=== PATIENT | female | born 1940 | race Caucasian/White ===

== ENCOUNTER → 2017-07-05 | Day surgery (SDC) | payer MEDICARE ==
--- NOTE | 2017-07-01 18:48 | Diagnostic Imaging Report ---
PROCEDURE: X-RAY CHEST, TWO VIEWS COMPARISON: Chest x-ray 12/04/14 INDICATIONS: PRE - OP RIGHT CARPAL TUNNEL FINDINGS: LUNGS: No consolidations or edema. A calcified granuloma in the posterior right lower lobe is stable. PLEURA: No effusions or pneumothorax. Bilateral apical pleural parenchymal thickening is stable. HEART \T\ MEDIASTINUM: The heart is normal in size. The aorta is mildly ectatic. Calcified mediastinal lymph nodes are stable measuring up to 3 cm. BONES \T\ SOFT TISSUES: Mild degenerative changes of the spine consistent with age. There are mild degenerative changes of the shoulders. Calcification superior to the left humeral head is suggestive of calcific tendinitis. No lytic or blastic lesions. CONCLUSION: Stable chest. No active disease. Dictated by: Mimi Stuart M.D. on 07/01/2017 at 18:56 Electronically approved by: Mimi Stuart M.D. on 07/01/2017 at 18:56
[~2017-07-05] MED LIST: ASPIR 8181 MG PO; BUPIVACAINE HCL 0.5% INJ 30 ML VIAL INJ ONE; CALCIUM 600 +1 EAC1 PO; CEFAZOLIN SOD 1 GM/NS 50ML 50 ML IV ONE; CELEBREX100 MG PO; CENTRUM SILVER1 EACH PO; DEXAMETHASONE SOD PHOS INJ 4 MG/ML VIAL ONE; EPHEDRINE SULFATE INJ 50 MG/10 ML SYR ONE; FENTANYL CITRATE/PF 100MCG/2 ML INJ ONE; FISH OIL PO; LIDOCAINE HCL 2% LOCAL INJ 5 ML SDV VIAL INJ ONE; LOSARTAN POTASS50 MG PO; MAGNESIUM OXID400 MG PO; MUPIROCIN 2% OINT 22 GM TUBE ONE; ONDANSETRON HCL INJ 2 MG/ML VIAL ONE; PREMARIN0.625 MG PO; PROPOFOL IV EMULSION 10 MG/ML 20 ML VIAL ONE; SEVOFLURANE INHAL SOLN 250 ML PEN BTL ONE; VITAMIN B COMPLEX PO
[2017-07-05 06:12] LABS: BASOPHILS % 0.5 % (0.0-1.0); EOSINOPHILS # (AUTO) 0.3 (0.0-0.4); EOSINOPHILS % 4.4 % (0.0-6.0); HEMATOCRIT 40.5 % (34.2-44.1); HEMOGLOBIN 13.7 g/dL (12.0-16.0); LYMPHOCYTES # (AUTO) 1.3 (1.0-3.2); LYMPHOCYTES % 22.4 % (18.0-39.1); MEAN CORPUSCULAR HEMOGLOBIN 31.6 pg (28-32); MEAN CORPUSCULAR HGB CONC 33.8 g/dL (31-35); MEAN CORPUSCULAR VOLUME 93.5 fL (81-99); MONOCYTES # (AUTO) 0.6 (0.2-0.8); MONOCYTES % 9.9 % (4.4-11.3); NEUTROPHILS # (AUTO) 3.5 (2.1-6.9); NEUTROPHILS % 62.4 % (38.7-80.0); PLATELET COUNT 112 x10e3/uL (140-360); RED BLOOD COUNT 4.33 x10e6/uL (3.6-5.1); RED CELL DISTRIBUTION WIDTH 12.2 % (11.7-14.4)
--- NOTE | 2017-07-05 16:49 | Operative Report ---
DATE OF PROCEDURE: July 05, 2017 PREOPERATIVE DIAGNOSIS: Right carpal tunnel syndrome. POSTOPERATIVE DIAGNOSES 1. Right carpal tunnel syndrome. 2. Flexor tenosynovitis, right wrist. PROCEDURES 1. Right open carpal tunnel release. 2. Flexor tenosynovectomy, right wrist. ANESTHESIA: General. HISTORY: The patient is a 76-year-old with EMG-proven right carpal tunnel syndrome. Risks, benefits and alternatives of treatment were discussed with the patient. The patient is prepared to undergo the procedure as outlined. PROCEDURE: The patient was brought to the operating theater. After the induction of adequate general inhalation anesthesia, the patient was prepped and draped in the supine position. A time out was performed by the entire operating room team. A 2.5-cm incision was marked out in the intrathenar space. The right upper extremity was exsanguinated and a tourniquet was inflated to a pressure of 250 mmHg. The incision was made through the skin and subcutaneous tissues and all venous tributaries were controlled with bipolar cautery. The incision was deepened through the palmar fascia until the transverse carpal ligament was identified. The ligament was sharply sectioned, taking care to protect and preserve the median nerve underlying it. After the complete width of the ligament had been transected, the distal volar forearm fascia was divided under direct view. Proliferative flexor tenosynovium was noticed to encompass the median nerve and this was radically excised. After performing this maneuver, the nerve was noted to lie adequately decompressed. The wound was copiously irrigated with bacteriostatic saline, closed with 5-0 nylon in an interrupted horizontal mattress fashion. A Marcaine field block was performed at the operative site. Tourniquet was deflated. All of the fingers pinked up nicely and a sterile bulking conforming bandage was applied to the hand and the wrist. A fiberglass splint was fashioned to maintain the wrist in a modest amount of extension. This was held in place with a loosely wrapped Peter wrap. The patient tolerated the procedure well and was brought to the recovery room in satisfactory condition and discharged with a postoperative instruction sheet as well as a followup appointment. Job#: [id number] [facility]
== END | disposition home or self-care (01) ==
LOC: OR 05:12
PROVIDERS: ATTEND Plastic Surgery
DX: G56.01 Carpal tunnel syndrome, right upper limb (principal); M65.841 Other synovitis and tenosynovitis, right hand; H91.90 Unspecified hearing loss, unspecified ear; I10 Essential (primary) hypertension; K75.9 Inflammatory liver disease, unspecified; Z01.810 Encounter for preprocedural cardiovascular examination; Z01.818 Encounter for other preprocedural examination; Z96.659 Presence of unspecified artificial knee joint
CPT/HCPCS: 25115; 36415; 71020; 85025; 93005; J1100; J2001; J2405

== ENCOUNTER 2018-09-22 14:00 | Outpatient (RCR) | payer MEDICARE ==
[~2018-09-22 14:00] MED LIST changes: -BUPIVACAINE HCL 0.5% INJ 30 ML VIAL INJ ONE; -CEFAZOLIN SOD 1 GM/NS 50ML 50 ML IV ONE; -DEXAMETHASONE SOD PHOS INJ 4 MG/ML VIAL ONE; -EPHEDRINE SULFATE INJ 50 MG/10 ML SYR ONE; -FENTANYL CITRATE/PF 100MCG/2 ML INJ ONE; -LIDOCAINE HCL 2% LOCAL INJ 5 ML SDV VIAL INJ ONE; -MUPIROCIN 2% OINT 22 GM TUBE ONE; -ONDANSETRON HCL INJ 2 MG/ML VIAL ONE; -PROPOFOL IV EMULSION 10 MG/ML 20 ML VIAL ONE; -SEVOFLURANE INHAL SOLN 250 ML PEN BTL ONE
== END 2018-09-24 ==
LOC: PT 14:00
PROVIDERS: ATTEND Specialist
DX: M47.816 Spondylosis without myelopathy or radiculopathy, lumbar region (principal); M62.81 Muscle weakness (generalized); R26.9 Unspecified abnormalities of gait and mobility

== ENCOUNTER 2018-10-09 15:00 | Outpatient (RCR) | payer MEDICARE | END 2018-10-24 | LOC: PT 15:00 | PROVIDERS: ATTEND Specialist | DX: M47.816 Spondylosis without myelopathy or radiculopathy, lumbar region (principal); M62.81 Muscle weakness (generalized); R26.9 Unspecified abnormalities of gait and mobility | CPT/HCPCS: 97139 ==

== ENCOUNTER → 2020-12-24 | Outpatient (RCR) | payer MEDICARE | LOC: PT 12-12 10:48 | PROVIDERS: ATTEND Specialist | DX: M19.011 Primary osteoarthritis, right shoulder (principal) ==

== ENCOUNTER 2021-01-23 14:56 | Outpatient (RCR) | payer MEDICARE | END 2021-01-24 | LOC: PT 14:56 | PROVIDERS: ATTEND Specialist | DX: M19.011 Primary osteoarthritis, right shoulder (principal) | CPT/HCPCS: 97139 ==

== ENCOUNTER 2021-02-23 15:00 | Outpatient (RCR) | payer MEDICARE | END 2021-02-24 | LOC: PT 15:00 | PROVIDERS: ATTEND Specialist | DX: M19.011 Primary osteoarthritis, right shoulder (principal); M25.511 Pain in right shoulder; M25.611 Stiffness of right shoulder, not elsewhere classified; M62.81 Muscle weakness (generalized) ==

== ENCOUNTER 2021-03-16 14:59 | Outpatient (RCR) | payer MEDICARE | END 2021-03-26 | LOC: PT 14:59 | PROVIDERS: ATTEND Specialist | DX: M19.011 Primary osteoarthritis, right shoulder (principal) | CPT/HCPCS: 97139 ==

== ENCOUNTER → 2022-03-18 | Outpatient (CLI) | payer MEDICARE | LOC: RAD 08:36 | PROVIDERS: ATTEND Student in an Organized Health Care Education/Training Program | DX: I10 Essential (primary) hypertension (principal) | CPT/HCPCS: 93306 ==

== ENCOUNTER 2022-10-31 06:46 | Emergency (ER) | payer MEDICARE ==
[~2022-10-31] VITALS: Ht 160 cm; Wt 83.9 kg
[2022-10-31] MEDS ORDERED: DILTIAZEM HCL 5 MG/ML 5 ML VIAL IV ONE ×2 (07:00→08:30)
[2022-10-31] MEDS ORDERED: ENOXAPARIN INJ 80 MG/0.8 ML SYR SC STA (07:03)
[2022-10-31 07:15] LABS: BASOPHILS % 0.1 % (0.0-1.0); EOSINOPHILS % 0.2 % (0.0-6.0); HEMATOCRIT 38.5 % (34.2-44.1); HEMOGLOBIN 12.5 g/dL (12.0-16.0); LYMPHOCYTES # (AUTO) 0.7 (1.0-3.2); LYMPHOCYTES % 6.1 % (18.0-39.1); MEAN CORPUSCULAR HEMOGLOBIN 32.2 pg (28-32); MEAN CORPUSCULAR HGB CONC 32.5 g/dL (31-35); MEAN CORPUSCULAR VOLUME 99.2 fL (81-99); MONOCYTES # (AUTO) 0.5 (0.2-0.8); MONOCYTES % 4.5 % (4.4-11.3); NEUTROPHILS % 88.1 % (38.7-80.0); PLATELET COUNT 197 x10e3/uL (140-360); RED BLOOD COUNT 3.88 x10e6/uL (3.6-5.1); RED CELL DISTRIBUTION WIDTH 13.2 % (11.7-14.4)
[2022-10-31] MEDS ORDERED: SODIUM CHLORIDE FLUSH 10 ML SYR IV PRN (07:15)
[2022-10-31] MEDS ORDERED: ASPIRIN 81 MG CHEW TAB PO ONE (07:15)
[2022-10-31 07:27] LABS: ALBUMIN 3.5 g/dL (3.5-5.0); ALBUMIN/GLOBULIN RATIO 1.3 (0.8-2.0); ANION GAP 19.7 mmol/L (8-16); CREATININE, SERUM 0.86 mg/dL (0.57-1.11)
[2022-10-31] MEDS ORDERED: DILTIAZEM HCL 30 MG TAB PO SCH (07:30)
[2022-10-31 07:31] LABS: POTASSIUM 2.7 mmol/L (3.5-5.1)
[2022-10-31] MEDS ORDERED: IOPAMIDOL 370 MG/ML 100 ML INFUS..BTL INJ ONE (07:35)
[2022-10-31] MEDS ORDERED: POTASSIUM CHLORIDE 20MEQ/100ML 100 ML IV SCH (08:00)
[2022-10-31] MEDS ORDERED: DILTIAZEM HCL 125 ML IV SCH (08:30)
[2022-10-31] MEDS ORDERED: DILTIAZEM HCL IV 5MG/ML 25 ML VIAL ONE (08:50)
[2022-10-31] MEDS ORDERED: ONDANSETRON HCL INJ 2MG/ML 2ML 2 MG/ML VIAL IV STA (08:50)
[2022-10-31] MEDS ORDERED: SODIUM CHLORIDE 0.9% 100 ML ONE (08:50)
[2022-10-31] MEDS ORDERED: Morphine 2mg Syringe 2 MG/ML SYR IV ONE (09:00)
[2022-10-31] MEDS ORDERED: SODIUM CHLORIDE 0.9% 250ML 250 ML ONE (09:26)
== END 2022-10-31 10:54 | disposition short-term general hospital (02) ==
LOC: ER 06:50
DX: I48.20 Chronic atrial fibrillation, unspecified (principal); E24.9 Cushing's syndrome, unspecified; D35.02 Benign neoplasm of left adrenal gland; I10 Essential (primary) hypertension; Z85.89 Personal history of malignant neoplasm of other organs and systems
CPT/HCPCS: 36415; 71045; 71260; 80053; 83880; 84484; 85025; 93005; 94760; 99284; J1650; J3480; J7050 ×2; Q9967; U0002

== ENCOUNTER 2022-11-11 08:11 | Emergency (ER) | payer MEDICARE ==
[~2022-11-11] VITALS: Ht 160 cm; Wt 83.9 kg
[2022-11-11] MEDS ORDERED: DILTIAZEM HCL 5 MG/ML 5 ML VIAL IV ONE ×2 (08:30→09:15)
[2022-11-11] MEDS ORDERED: DILTIAZEM HCL IV SOLN 125 MG in SODIUM CHLORIDE 0.9% 100 ML IV SCH (08:30)
[2022-11-11] MEDS ORDERED: SODIUM CHLORIDE FLUSH 10 ML SYR IV PRN (08:30)
[2022-11-11 08:34] LABS: BASOPHILS % 0.1 % (0.0-1.0); EOSINOPHILS % 0.1 % (0.0-6.0); HEMATOCRIT 34.4 % (34.2-44.1); HEMOGLOBIN 11.7 g/dL (12.0-16.0); LYMPHOCYTES # (AUTO) 0.4 (1.0-3.2); LYMPHOCYTES % 4.5 % (18.0-39.1); MEAN CORPUSCULAR HEMOGLOBIN 32.3 pg (28-32); MONOCYTES # (AUTO) 0.4 (0.2-0.8); MONOCYTES % 3.8 % (4.4-11.3); NEUTROPHILS # (AUTO) 8.2 (2.1-6.9); NEUTROPHILS % 89.9 % (38.7-80.0); PLATELET COUNT 163 x10e3/uL (140-360); RED BLOOD COUNT 3.62 x10e6/uL (3.6-5.1); RED CELL DISTRIBUTION WIDTH 12.8 % (11.7-14.4)
[2022-11-11 08:54] LABS: ALBUMIN 3.3 g/dL (3.5-5.0); ALBUMIN/GLOBULIN RATIO 1.4 (0.8-2.0); ANION GAP 20.1 mmol/L (8-16); CALCIUM 8.6 mg/dL (8.4-10.2); CREATININE, SERUM 0.86 mg/dL (0.57-1.11)
[2022-11-11 08:56] LABS: POTASSIUM 2.1 mmol/L (3.5-5.1)
[2022-11-11] MEDS ORDERED: POTASSIUM CHLORIDE 20MEQ/100ML 300 ML IV ONE (09:00)
[2022-11-11] MEDS ORDERED: SODIUM CHLORIDE 0.9% 500ML 500 ML ONE (09:11)
[2022-11-11] MEDS ORDERED: ASPIRIN 81 MG CHEW TAB PO ONE ×2 (09:15→10:00)
[2022-11-11] MEDS ORDERED: ONDANSETRON HCL INJ 2MG/ML 2ML 2 MG/ML VIAL IV PRN (10:00)
[2022-11-11] MEDS ORDERED: SODIUM CHLORIDE FLUSH 10 ML SYR INJ PRN (10:00)
[2022-11-11 10:16] LABS: INR 1.13
[2022-11-11 10:17] LABS: PARTIAL THROMBOPLASTIN TIME 20.9 seconds (23.8-35.5)
[2022-11-11] MEDS ORDERED: METOPROLOL TARTRATE INJ 1 MG/ML VIAL IV ONE (10:30)
[2022-11-11] MEDS ORDERED: METOPROLOL TARTRATE 25 MG TAB PO SCH (10:30)
[2022-11-11] MEDS ORDERED: SODIUM CHLORIDE 0.9% 250ML 250 ML ONE (11:38)
[2022-11-11 12:39] VITALS: O2SAT 99
== END 2022-11-11 13:15 | disposition short-term general hospital (02) ==
LOC: ER 08:18
DX: E87.6 Hypokalemia (principal); I48.20 Chronic atrial fibrillation, unspecified; R07.89 Other chest pain; I10 Essential (primary) hypertension; Z20.822 Contact with and (suspected) exposure to COVID-19; R94.31 Abnormal electrocardiogram [ECG] [EKG]
CPT/HCPCS: 0223U; 36415; 71045; 80053; 84439; 84443; 84484; 85025; 85610; 85730; 93005; 94760; 99285; J3480; J7040; J7050 ×2